=== PATIENT | female | born 1955 | race Caucasian/White ===

== ENCOUNTER 2018-05-16 14:18 | Emergency (ER) | payer MEDICAID ==
[~2018-05-16] VITALS: Ht 157.5 cm; Wt 95.3 kg
[2018-05-16 14:25] VITALS: Ht 157.5 cm; Wt 95.3 kg
[2018-05-16 18:08] VITALS: BP 137/66
== END 2018-05-16 18:08 | disposition home or self-care (01) ==
LOC: ED 14:18
DX: S83.91XA Sprain of unspecified site of right knee, initial encounter (principal); S73.101A Unspecified sprain of right hip, initial encounter; M19.90 Unspecified osteoarthritis, unspecified site; E66.9 Obesity, unspecified; Z68.38 Body mass index [BMI] 38.0-38.9, adult; W10.9XXA Fall (on) (from) unspecified stairs and steps, initial encounter; Y93.89 Activity, other specified; Y92.89 Other specified places as the place of occurrence of the external cause; Y99.8 Other external cause status
CPT/HCPCS: J3010